=== PATIENT | male | born 1960 | race African-American/Black ===

== ENCOUNTER 2018-01-30 19:44 | Emergency (ER) | payer OTHER ==
--- NOTE | 2018-01-30 19:48 | PDOC ---
History of Present Illness - General History Source: Patient Exam Limitations: No Limitations <Nahun Reyna - Last Filed: 01/30/18 20:12> - General History Source: Patient Exam Limitations: No Limitations <IvetteileneAndreszainelpidioJonathanelpidio Jaimes - Last Filed: 01/30/18 20:15> - General Chief Complaint: Pain Stated Complaint: PAIN TO CHEST AND ABD Time Seen by Provider: 01/30/18 19:47 - History of Present Illness Initial Comments: 01/30/18 20:12 The patient is a 57 year old male with no significant past medical history who presents to the emergency room with chest pain for 7 months. 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 He reports that he still ran the tough mudder and that his pain was no worse after. He describes his pain as mid- sternal, pressure-like, occasionally radiating inferiorly. He reports that his pain is recently worsening but denies attempting to treat symptoms at home. The patient has an appointment with his PMD, Dr. Bjorn Hinds, in 10 days. PAST MEDICAL HISTORY: no significant history PAST SURGICAL HISTORY: no significant history FAMILY HISTORY: no pertinent history SOCIAL HISTORY: Pt lives with family and is employed. MEDICATIONS: reviewed ALLERGIES: As per nursing notes General: No fevers or chills, no weakness, no weight loss HEENT: No change in vision. No sore throat, No ear pain Cardiovascular: No shortness of breath Respiratory:No cough, or wheezing. Gastrointestinal: No nausea, vomiting, diarrhea or constipation, No rectal bleeding Genitourinary: No dysuria, hematuria, or frequency Musculoskeletal: (+) Chest pain. No joint pain or swelling Neurologic: No headache, vertigo, dizziness or loss of consciousness Psychiatric: No depression Skin: No rashes or easy bruising Endocrine: No increased thirst or abnormal weight change Allergic: No skin or latex allergy All other systems reviewed and normal General: Well-nourished well-developed individual, no acute distress HEENT: Throat: Normal, tonsils normal, no erythema or exudate Neck: Supple, no meningeal signs, no lymphadenopathy Eyes::Pupils equal reactive and round, extraocular motion intact Chest: Nontender to palpation Cardiac: S1-S2 normal, regular rate and rhythm, no murmurs rubs or gallops Respiratory: Lungs clear to auscultation bilateral Abdomen: Soft, nondistended, normal bowel sounds, nontender to palpation diffusely Extremities: Warm, dry, no cyanosis, clubbing, or edema Skin: No rashes Neuro: Alert and oriented x3, nonfocal exam, grossly intact, normal gait Psych: Normal mood and affect (Nahun Reyna) 01/30/18 20:14 A portion of this note was documented by scribe services under my direction. I have reviewed the details of the note, within reason, and agree with the documentation. The case summary and management plan written by me. Assessment and plan: This is a 57-year-old male who comes in complaining of 7 months of anterior chest wall discomfort mostly worse when he takes a deep breath or does abdominal crunches. Patient has appointment to see his primary care doctor in 1 week. Patient has not taken anything for the discomfort. Patient had blood work prior to coming to the ER with. I reviewed the blood work was all normal. Patient otherwise reassured and told to keep his appointment with his primary care doctor in 1 week. (Yvette Martinez I) Past History <Nahun Reyna - Last Filed: 01/30/18 20:12> <Yvette Martinez I - Last Filed: 01/30/18 20:15> - Past Medical History Allergies/Adverse Reactions: Allergies Allergy/AdvReac Type Severity Reaction Status Date / Time No Known Allergies Allergy Unverified 01/30/18 19:45 Home Medications: Ambulatory Orders NK [No Known Home Medication] 01/30/18 *DC/Admit/Observation/Transfer <Nahun Reyna - Last Filed: 01/30/18 20:12> - Discharge Dispostion Decision to Admit order: No <Yvette Martinez I - Last Filed: 01/30/18 20:15> Diagnosis at time of Disposition: Chest wall pain, chronic - Discharge Dispostion Disposition: HOME - Referrals Referrals: Bjorn Hinds MD [Primary Care Provider] - - Patient Instructions Additional Instructions: Keep your appointment with Dr. Hinds. In the meantime take an anti-inflammatory ibuprofen 3 tablets 3 times a day with food or Aleve one tablet twice a day with food for the next week untill you see Dr. Hinds. Return to the emergency department immediately with ANY new, persistent or worsening symptoms. Continue any medications as previously prescribed by your physician. You should follow up with your primary doctor as soon as possible regarding today's emergency department visit. . Please make sure your doctor reviews the results of your emergency evaluation. Thank you for coming to the Emergency Department today for your care. It was a pleasure to see you today. Please note that your evaluation is INCOMPLETE until you follow-up with your doctor. - Post Discharge Activity - Attestations Scribe Attestion: 01/30/18 20:12 Documentation prepared by Nahun Reyna, acting as medical intern for Yvette Martinez MD. (Nahun Reyna)
[2018-01-30 20:17] VITALS: BP 113/74; PULSE 80; TEMP 97.8; BMI 25.8
== END 2018-01-30 20:18 | disposition home or self-care (01) ==
LOC: FER 19:44
DX: R07.89 Other chest pain (principal); G89.29 Other chronic pain
CPT/HCPCS: 99283-25

== ENCOUNTER 2019-05-27 07:48 | Emergency (ER) | payer OTHER ==
[2019-05-27 08:03] VITALS: BP 134/74; PULSE 61; TEMP 98.2; BMI 23.9
[2019-05-27] MEDS ORDERED: CEPHALEXIN MONOHYDRATE 500 MG CAPSULE (UD) PO ONE (08:26)
[2019-05-27] MEDS ORDERED: CEPHALEXIN MONOHYDRATE 500 MG CAPSULE (UD) ONE (08:40)
--- NOTE | 2019-05-27 08:40 | PDOC ---
History of Present Illness - General Chief Complaint: Injury Stated Complaint: left 4th finger injury Time Seen by Provider: 05/27/19 07:55 History Source: Patient Exam Limitations: No Limitations - History of Present Illness Initial Comments: 05/27/19 08:35 healthy 58y/o M p/w L ring fingernail injury. Pt was moving a heavy ladder while at work, ladder landed on and scraped across his distal L ring finger, breaking the nail. No other injuries, no motor/sensory deficit. applied a bandage and presents for evaluation. last dT 2013, no h/o surgery to the area. Past History - Past Medical History Allergies/Adverse Reactions: Allergies Allergy/AdvReac Type Severity Reaction Status Date / Time No Known Allergies Allergy Verified 05/27/19 07:50 Home Medications: Ambulatory Orders Cephalexin Monohydrate [Keflex -] 500 mg PO BID #6 capsule 05/27/19 Levothyroxine Sodium [Synthroid] 0 mcg PO DAILY 05/27/19 COPD: No Thyroid Disease: Yes - Psycho Social/Smoking Cessation Hx Smoking History: Never smoked Have you smoked in the past 12 months: No Number of Cigarettes Smoked Daily: 0 Hx Alcohol Use: No Drug/Substance Use Hx: No Substance Use Type: None Review of Systems - Review of Systems Cardiac (ROS): No: Lightheadedness, Syncope Musculoskeletal: Yes: See HPI. No: Joint Pain Neurological: No: Paresthesia, Tingling, Weakness *Physical Exam - Vital Signs Last Vital Signs Temp Pulse Resp BP Pulse Ox 98.2 F 61 16 134/74 100 05/27/19 07:49 05/27/19 07:49 05/27/19 07:49 05/27/19 07:49 05/27/19 07:49 - Physical Exam Comments: 05/27/19 08:37 GENERAL: The patient is awake, alert, and fully oriented, in no acute distress. HEAD: Normal with no signs of trauma. EYES: Pupils equal, round and reactive to light, extraocular movements intact, sclera anicteric, conjunctiva clear. EXTREMITIES: L hand: complete horizontal transection of L 4th fingernail with some bleeding from the nailbed. Proximal portion of nail is intact and eponychium is intact and unaffected. No volar laceration or skin disruption. FROM at MCP/PIP/DIP flex/extend with 5/5 strength. Some ttp distal phalanx, nvi otherwise. NEUROLOGICAL: Normal speech, normal gait. PSYCH: Normal mood, normal affect. SKIN: L 4th fingernail as noted, otherwise intact. Warm, Dry, normal turgor, no rashes or lesions noted. ED Treatment Course - RADIOLOGY Radiology Studies Ordered: Category Date Time Status FINGER(S) LEFT [RAD] Stat Radiology 05/27/19 07:58 Ordered Medical Decision Making - Medical Decision Making 05/27/19 08:40 58y/o M with isolated crush injury to L 4th digit fingertip. +nail transection with likely nailbed laceration, otherwise nvi without evidence of tendon injury. r/o tuft fracture. xray shows distal tuft fracture on my prelim read tetanus utd will prophylax with abx for finger injury wound repair, splint, hand f/u 05/27/19 09:51 PROCEDURE NOTE: NAILBED REPAIR: Digital left fourth finger nerve block performed using lidocaine with adequate anesthesia. The distal portion of the nail fragment was removed from the nailbed. 6.0 absorbable sutures x5 were placed to repair the nailbed laceration with good approximation and adequate hemostasis. Patient remained neurovascularly intact after sutures were in place. A Xeroform and nonadherent dressing was applied to the wound, the proximal nail remains in place. A finger splint was applied over the bandaged finger for tuft fracture splinting. Patient remained neurovascularly intact, tolerated the procedure well. Agrees with discharge plan, understands wound care instructions, will follow up with hand specialist, understands return criteria. Discharge - Discharge Information Problems reviewed: Yes Clinical Impression/Diagnosis: Closed fracture of tuft of distal phalanx of finger Nailbed laceration, finger Qualifiers: Encounter type: initial encounter Qualified Code(s): S61.319A - Laceration without foreign body of unspecified finger with damage to nail, initial encounter Condition: Improved Disposition: HOME - Additional Discharge Information Prescriptions: Cephalexin Monohydrate [Keflex -] 500 mg PO BID #6 capsule - Follow up/Referral Referrals: Bjorn Hinds MD [Primary Care Provider] - Gerardo Box MD [Staff Physician] - Rj Conde MD [Staff Physician] - - Patient Discharge Instructions Patient Printed Discharge Instructions: DI for Laceration Repair, DI for Finger Fracture, DI for Nail Avulsion Injury, DI for Nail Bed Injury Additional Instructions: Activity as tolerated. Stay hydrated. An x-ray today confirmed a small "tuft fracture" of the fingertip bone, as well as the nail and nailbed injury which were repaired. Maintain current dressing for 72 hours, then replace with bacitracin dressing. Keep the wound clean and dry without soaking or scrubbing. The splint will have to remain in place until cleared by orthopedics, though it can be briefly removed for wound care. Tylenol 1000 mg every 8 hours and/or ibuprofen 600 mg every 8 hours as needed for pain. Elevate the affected areas for 20 minutes every 3-4 hours to reduce swelling. Take the cephalexin as prescribed for 3 days to prevent infection. Continue your medications as previously prescribed by your physician. You should follow-up with a hand specialist as soon as possible regarding today' s emergency department visit. Consider calling Dr. Conde or Dr. Box for an appointment. Return to the emergency department for any new or concerning symptoms, particularly persistent or worsening pain, bleeding or pus, swelling or redness , numbness or tingling, fevers or chills. - Post Discharge Activity
== END 2019-05-27 10:03 | disposition home or self-care (01) ==
LOC: FER 07:48
PROC: 0HDQXZZ Extraction of Finger Nail, External Approach (ICD-10-PCS; principal; 2019-05-27)
PROC: 0HQGXZZ Repair Left Hand Skin, External Approach (ICD-10-PCS; 2019-05-27)
DX: S61.315A Laceration without foreign body of left ring finger with damage to nail, initial encounter (principal); S62.635A Displaced fracture of distal phalanx of left ring finger, initial encounter for closed fracture; W23.0XXA Caught, crushed, jammed, or pinched between moving objects, initial encounter; Y93.89 Activity, other specified; Y92.9 Unspecified place or not applicable; Y99.0 Civilian activity done for income or pay; E07.9 Disorder of thyroid, unspecified
CPT/HCPCS: 73140-TC-LT-FY; 99282-25

== ENCOUNTER 2019-07-24 07:40 | Day surgery (SDC) | payer OTHER ==
[2019-07-21 11:44] VITALS: BMI 25.0
[2019-07-24] MEDS ORDERED: PROPOFOL 20 ML ONE ×2 (08:00)
[2019-07-24 08:46] VITALS: TEMP 98.2
[2019-07-24 10:27] VITALS: BP 110/65; PULSE 69
== END 2019-07-24 10:55 | disposition home or self-care (01) ==
LOC: FASU-ENDO 07:40
PROVIDERS: ATTEND Internal Medicine Gastroenterology
PROC: 0DJD8ZZ Inspection of Lower Intestinal Tract, Via Natural or Artificial Opening Endoscopic (ICD-10-PCS; principal; 2019-07-24 09:34)
DX: Z12.11 Encounter for screening for malignant neoplasm of colon (principal); K64.8 Other hemorrhoids

== ENCOUNTER 2022-11-27 19:48 | Emergency (ER) | payer BC ==
[2022-11-27 20:23] VITALS: BP 125/91; PULSE 80; RESP 16; TEMP 98.6; BMI 25.0
== END 2022-11-27 21:50 | disposition home or self-care (01) ==
LOC: FER 19:48
DX: R10.9 Unspecified abdominal pain (principal)
CPT/HCPCS: 81003; 81015; 99283-25